=== PATIENT | male | born 1940 | race Caucasian/White ===

== ENCOUNTER 2020-07-30 13:50 | Inpatient (IN) | payer MEDICARE, OTHER ==
[~2020-07-30] VITALS: Ht 190.5 cm; Wt 104.6 kg
[2020-07-30] MEDS ORDERED: ALLOPURINOL 10100 M3 PO ×2 (15:26)
[2020-07-30] MEDS ORDERED: PACERONE200 MG PO (15:27)
[2020-07-30] MEDS ORDERED: ASA81BEC PO (15:30)
[2020-07-30] MEDS ORDERED: TOPROL XL50 MG PO (15:31)
[2020-07-30] MEDS ORDERED: JARDIANCE10 MG PO (15:31)
[2020-07-30] MEDS ORDERED: SUPER THERAVIT1 EACH PO (15:32)
[2020-07-30] MEDS ORDERED: FISH OIL 1,0001 EAC9 PO (15:33)
[2020-07-30] MEDS ORDERED: PRAVASTATIN SOD40 MG PO (15:33)
[2020-07-30] MEDS ORDERED: ENTRESTO 24 MG1 EACH PO (15:34)
[2020-07-30] MEDS ORDERED: SPIRONOLACTONE25 MG PO (15:35)
[2020-07-30] MEDS ORDERED: WARFARIN SODIUM4 MG PO (15:36)
[2020-07-30] MEDS ORDERED: WARFARIN SODIUM1 MG PO (15:38)
[2020-07-30 17:22] VITALS: BP 103/70
[2020-07-30 21:00] VITALS: BP 87/49
[2020-07-30 22:30] VITALS: BP 102/56
[2020-07-31 05:26] LABS: HEMATOCRIT 41.3 % (42.0-52.0); HEMOGLOBIN 13.5 gm/dL (14.0-18.0); MCH 28.4 pg (26.0-34.0); MCHC 32.8 g/dL (28.0-37.0); MCV 86.7 fL (80.0-100.0); MPV 9.5 fl. (7.2-11.1); RBC 4.77 mil/uL (4.50-6.00); RDW-CV 17.8 % (10.5-14.5); WBC 5.4 thou/uL (4.0-11.0)
[2020-07-31 05:32] LABS: CREATININE 1.4 mg/dL (0.6-1.3); POTASSIUM 4.4 mmol/L (3.5-5.1)
[2020-07-31 05:36] LABS: INR 2.9; PROTIME 29.3 Seconds (9.20-11.50)
[2020-07-31 07:59] VITALS: BP 107/59
[2020-07-31 20:00] VITALS: BP 94/54
[2020-07-31 20:02] VITALS: BP 90/55
[2020-08-01 04:19] LABS: CALCIUM 8.8 mg/dL (8.5-10.1); CREATININE 1.4 mg/dL (0.6-1.3); MAGNESIUM 2.1 mg/dL (1.8-2.4); POTASSIUM 4.5 mmol/L (3.5-5.1)
[2020-08-01 04:20] LABS: HEMOGLOBIN 13.4 gm/dL (14.0-18.0); MCHC 32.6 g/dL (28.0-37.0); MPV 9.3 fl. (7.2-11.1); RBC 4.76 mil/uL (4.50-6.00); RDW-CV 17.6 % (10.5-14.5); WBC 5.2 thou/uL (4.0-11.0)
[2020-08-01 04:47] LABS: INR 2.7
[2020-08-01 07:50] VITALS: BP 103/56
--- NOTE | 2020-08-01 12:24 | EKG ---
[place] [address] ELECTROCARDIOGRAM REPORT Name: VIN MACKENZIE Room: [address] ADM IN M.R.#: [id number] Admission: 07/30/20 Attend Phys: Shreyas Plascencia MD Discharge: Date of : 36 Date of Service: 08/01/20 0936 Report #: [id number] THIS REPORT FOR: //name// [facility] Test Date: 2020-08-01 Test Time: 09:36:55 Pat Name: VIN MACKENZIE Department: Room: [address] Gender: M Driver Manager: : 1940 Requested By: Ashu Weaver Order Number: [id number] Cordell MD: Dc Alba Measurements Intervals [place] Rate: 60 P: [place]: QRS: -36 QRSD: 120 T: QT: 435 QTc: 435 Interpretive Statements Afib/flutter and ventricular-paced rhythm No further analysis attempted due to paced rhythm No previous ECG available for comparison Electronically Signed On 08-01-2020 12:24:38 CDT by Dc Alba [email or web address] <ELECTRONICALLY SIGNED> By: Dc Alba MD, [facility] 08/01/20 1224 0936 0936 Dc Alba MD, [facility] /EPI
--- NOTE | 2020-08-01 15:21 | CON ---
[address] [address] CONSULTATION Name: VIN MACKENZIE Room: [address] ADM IN M.Priyanka.#: [id number] Admission: 07/30/20 Attend Phys: Shreyas Plascencia MD Discharge: Date of : 36 Report #: [id number] THIS REPORT FOR: cc: FAM - Family physician unknown FAM - Family physician unknown ~ Ashu Weaver MD [facility] DATE OF SERVICE: 07/31/2020 CARDIOLOGY CONSULTATION HISTORY OF PRESENT ILLNESS: The patient is an 80-year-old single white male who I was asked to see in the hospital today after placement of a defibrillator. The patient has a long history of heart disease. Unfortunately, he has never been here to [place] before. He apparently had a stent placed in 2011 at [facility] [place] [facility] [place] when he presented with shortness of breath. He eventually had a pacemaker inserted in 2013 at [facility]. Recently, he complained of being short of breath and having no energy. Apparently, he was found to be in atrial fibrillation. He was admitted to [facility] in [facility] [facility] [place] [place] last week and was found to be in atrial fibrillation. He apparently was cardioverted twice. He has been on warfarin for several years. He has had no bleeding. He denied any recent chest pain. He has been short of breath, but no edema. He denied any fever, bleeding, palpitation or syncope. When he was admitted to [facility] last week, he was found to have evidence of an ischemic cardiomyopathy with an ejection fraction of 35%. He underwent an upgrade of his pacemaker to a biventricular defibrillator last week, he did have a small apical pneumothorax. He was noted to have mitral regurgitation. The atrial fibrillation persisted. [facility]. PAST MEDICAL HISTORY: Otherwise significant for cholecystectomy, diabetes, hyperlipidemia. MEDICATIONS: Include Pravachol, aspirin, warfarin. ALLERGIES: HE HAS PREVIOUS ALLERGY TO SEVERAL MEDICATIONS. FAMILY HISTORY: His father had heart disease. SOCIAL HISTORY: He is , lives by herself in [place]. He quit smoking in 1985. No alcohol abuse. REVIEW OF SYSTEMS: He has stroke years ago. He has no history of asthma, liver disease, kidney disease. He had skin cancer removed. PHYSICAL EXAMINATION: [place] [address] CONSULTATION Name: VIN MACKENZIE Room: [address] IN [facility]#: [id number] Admission: 07/30/20 Attend Phys: Shreyas Plascencia MD Discharge: Date of : 36 Report #: [id number] GENERAL: Revealed an elderly male, appeared in no distress. VITAL SIGNS: His blood pressure is 110/60, pulse 60. He is afebrile. HEENT: He is anicteric. Conjunctivae pink. Mucous membranes moist. NECK: Veins do not appear distended. No carotid bruits. CHEST: Clear to auscultation. CARDIOVASCULAR: Regular rate and rhythm. ABDOMEN: Soft. EXTREMITIES: Had no pitting edema. SKIN: Cool and dry. LABORATORY DATA: There is no ECG at this time. IMPRESSION AND RECOMMENDATIONS: 1. Ischemic cardiomyopathy. The patient with an ejection fraction of 35%. The patient has been on beta vic, Entresto and spironolactone. 2. Atrial fibrillation. The patient is on amiodarone. 3. Coronary artery disease with previous stent. No recent angina. I would continue aspirin a day. 4. History of cutaneous lymphoma. 5. Diabetes. 6. Hyperlipidemia. The patient is on a statin drug. 7. Previous tobacco abuse. 8. Chronic anticoagulation with warfarin. I would continue an INR of 2-3. <ELECTRONICALLY SIGNED> By: Ashu Weaver MD, [facility] 08/01/20 1521 1422 [id number] Weaver MD, FACC /nt
[2020-08-01 19:00] VITALS: BP 96/55
[2020-08-02 06:02] LABS: HEMATOCRIT 42.7 % (42.0-52.0); HEMOGLOBIN 13.8 gm/dL (14.0-18.0); MCH 28.1 pg (26.0-34.0); MCHC 32.3 g/dL (28.0-37.0); MPV 9.4 fl. (7.2-11.1); RBC 4.91 mil/uL (4.50-6.00); WBC 4.6 thou/uL (4.0-11.0)
[2020-08-02 06:37] LABS: CALCIUM 8.9 mg/dL (8.5-10.1); CREATININE 1.2 mg/dL (0.6-1.3); POTASSIUM 4.7 mmol/L (3.5-5.1)
[2020-08-02 07:55] VITALS: BP 117/70
[2020-08-02 14:07] LABS: INR 2.4; PROTIME 23.9 Seconds (9.20-11.50)
[2020-08-02 19:25] VITALS: BP 122/74
[2020-08-03 08:00] VITALS: BP 108/72
[2020-08-03 20:00] VITALS: BP 103/63
[2020-08-04 08:00] VITALS: BP 112/70
[2020-08-04 20:05] VITALS: BP 106/55
[2020-08-05 04:48] LABS: HEMATOCRIT 43.5 % (42.0-52.0); HEMOGLOBIN 14.1 gm/dL (14.0-18.0); MCH 28.3 pg (26.0-34.0); MCHC 32.5 g/dL (28.0-37.0); MCV 87.3 fL (80.0-100.0); MPV 9.1 fl. (7.2-11.1); RBC 4.98 mil/uL (4.50-6.00); RDW-CV 17.3 % (10.5-14.5); WBC 5.7 thou/uL (4.0-11.0)
[2020-08-05 04:59] LABS: INR 2.3; PROTIME 23.5 Seconds (9.20-11.50)
[2020-08-05 05:03] LABS: CALCIUM 9.4 mg/dL (8.5-10.1); CREATININE 1.5 mg/dL (0.6-1.3); POTASSIUM 5.2 mmol/L (3.5-5.1)
[2020-08-05 07:20] VITALS: BP 111/66
[2020-08-05 19:30] VITALS: BP 103/56
[2020-08-06 07:50] VITALS: BP 116/65
[2020-08-06 19:20] VITALS: BP 110/71
[2020-08-07 08:00] VITALS: BP 110/66
[2020-08-07 19:25] VITALS: BP 104/66
[2020-08-08 08:45] VITALS: BP 110/69
[2020-08-08 10:00] VITALS: BP 117/69
[2020-08-08 11:01] VITALS: BP 114/68
[2020-08-08 20:30] VITALS: BP 103/57
[2020-08-09 04:27] LABS: HEMATOCRIT 42.3 % (42.0-52.0); HEMOGLOBIN 13.9 gm/dL (14.0-18.0); MCH 28.6 pg (26.0-34.0); MCHC 32.8 g/dL (28.0-37.0); MPV 9.2 fl. (7.2-11.1); RBC 4.86 mil/uL (4.50-6.00); RDW-CV 17.5 % (10.5-14.5); WBC 8.2 thou/uL (4.0-11.0)
[2020-08-09 04:35] LABS: CALCIUM 9.1 mg/dL (8.5-10.1); CREATININE 1.4 mg/dL (0.6-1.3); POTASSIUM 4.6 mmol/L (3.5-5.1)
[2020-08-09 08:27] VITALS: BP 100/70
[2020-08-09 20:09] VITALS: BP 111/59
[2020-08-10 07:30] VITALS: BP 102/62
[2020-08-10 08:00] VITALS: BP 96/63
[2020-08-10 20:23] VITALS: BP 123/69
[2020-08-11 02:06] LABS: GLYCOHEMOGLOBIN (HGB A1C) 6.3 % (4.8-5.6)
[2020-08-11 07:50] VITALS: BP 107/65
[2020-08-11 20:19] VITALS: BP 112/67
[2020-08-12 08:28] VITALS: BP 105/64
[2020-08-12 19:00] VITALS: BP 106/63
[2020-08-13 07:50] VITALS: BP 107/70
[2020-08-13 20:38] VITALS: BP 99/58
[2020-08-14 07:53] VITALS: BP 111/72
[2020-08-14 19:00] VITALS: BP 105/66
[2020-08-15 07:50] VITALS: BP 103/65
[2020-08-15 19:00] VITALS: BP 102/62
[2020-08-16 05:07] LABS: HEMATOCRIT 45.8 % (42.0-52.0); HEMOGLOBIN 14.9 gm/dL (14.0-18.0); MCH 28.9 pg (26.0-34.0); MCHC 32.6 g/dL (28.0-37.0); MCV 88.5 fL (80.0-100.0); MPV 9.1 fl. (7.2-11.1); RBC 5.17 mil/uL (4.50-6.00); RDW-CV 17.4 % (10.5-14.5)
[2020-08-16 05:09] LABS: PROTIME 29.7 Seconds (9.20-11.50)
[2020-08-16 05:11] LABS: CALCIUM 9.5 mg/dL (8.5-10.1); CREATININE 1.4 mg/dL (0.6-1.3); POTASSIUM 5.1 mmol/L (3.5-5.1)
[2020-08-16 08:00] VITALS: BP 109/67
[2020-08-16 19:00] VITALS: BP 119/66
[2020-08-17 08:10] VITALS: BP 93/58
[2020-08-17] MEDS ORDERED: WARFARIN SODIUM4 MG PO (12:41)
[2020-08-17] MEDS ORDERED: WARFARIN SODIUM5 MG PO (12:42)
[2020-08-17] MEDS ORDERED: TOPROL XL25 MG PO (12:44)
[2020-08-17 12:46] VITALS: BP 103/66
[2020-08-17 20:21] VITALS: BP 102/61
[2020-08-18 07:30] VITALS: BP 94/63
[2020-08-18 12:10] VITALS: BP 118/72
== END 2020-08-18 13:31 | DRG 948 ==
LOC: M.REH 13:50
PROVIDERS: Family Medicine; Internal Medicine Cardiovascular Disease; Psychiatry & Neurology Neurology; ADMIT Physical Medicine & Rehabilitation; ATTEND Physical Medicine & Rehabilitation
DX: R53.81 Other malaise (principal); J98.11 Atelectasis; J93.9 Pneumothorax, unspecified; I50.32 Chronic diastolic (congestive) heart failure; I48.19 Other persistent atrial fibrillation; I69.351 Hemiplegia and hemiparesis following cerebral infarction affecting right dominant side; D68.59 Other primary thrombophilia; I25.10 Atherosclerotic heart disease of native coronary artery without angina pectoris; E11.9 Type 2 diabetes mellitus without complications; E78.5 Hyperlipidemia, unspecified; Z20.822 Contact with and (suspected) exposure to COVID-19; I25.5 Ischemic cardiomyopathy; I08.1 Rheumatic disorders of both mitral and tricuspid valves; I95.9 Hypotension, unspecified; I25.2 Old myocardial infarction; Z79.01 Long term (current) use of anticoagulants; Z95.5 Presence of coronary angioplasty implant and graft; Z95.810 Presence of automatic (implantable) cardiac defibrillator; Z79.899 Other long term (current) drug therapy; Z79.82 Long term (current) use of aspirin; Z82.49 Family history of ischemic heart disease and other diseases of the circulatory system; Z88.8 Allergy status to other drugs, medicaments and biological substances; Z91.041 Radiographic dye allergy status; Z85.72 Personal history of non-Hodgkin lymphomas